=== PATIENT | female | born 1950 | race Caucasian/White ===

== ENCOUNTER 2020-04-19 16:26 | Inpatient (IN) | payer OTHER ==
[~2020-04-19] VITALS: Ht 162.6 cm; Wt 59.0 kg
[2020-04-19 21:40] VITALS: BP 114/43
[2020-04-19 21:45] VITALS: BP 114/43
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
[2020-04-20] MEDS ORDERED: MINIVELLE1 EAC1 PO (07:21)
[2020-04-20] MEDS ORDERED: VRAYLAR3 MG PO (07:22)
[2020-04-20] MEDS ORDERED: LOPRESSOR50 MG PO (07:23)
[2020-04-20] MEDS ORDERED: ALPRAZOLAM XR3 MG PO (07:26)
[2020-04-20] MEDS ORDERED: SENTRY SENIOR1 EAC2 PO (07:27)
[2020-04-20] MEDS ORDERED: ASPIRIN EC81 M1 PO (07:28)
[2020-04-20] MEDS ORDERED: NEURONTIN800 MG PO (07:30)
[2020-04-20 09:05] VITALS: BP 102/54
--- NOTE | 2020-04-20 11:12 | NUR ---
REPORTS FEELING ANXIOUS THIS AM "I DON'T THINK THIS IS THE PLACE FOR ME" GAIT STEADY WITHOUT ASSISTVE DEVICES. ORIENTED X4. DENIES SI/SH/HI. AM METROPOLOL HELD FOR BP 102/64-PT STATES USES FOR ANXIETY HAS NEVER BEEN DX WITH HTN AND STATES HASW BEEN SYMPTOMMATIC WITH HYPOTENSION REPORTING DIZZINESS. GAIT STEADY WITHOUT ASSISTIVE DEVICES. SOCIAL WITH FEMALE PEER ON [facility]
[2020-04-20 21:30] VITALS: BP 102/54
--- NOTE | 2020-04-21 03:03 | NUR ---
Assumed pt care at 1930. Pt is sleeping but is arosuable when called upon. No sign of distress noted in pt. Denies any pain. Pt is laying in bed resting comfortable. Assessment completed and documented. Scheduled meds administered to pt. Tolerated PO intake. No acute events overnight. Continue to monitor. No further needs at this time.
[2020-04-21 07:24] VITALS: BP 119/51
--- NOTE | 2020-04-21 11:00 | NUR ---
Assumed care 0700. Pleasant, quiet, cooperative, compliant with medications. BP med held due to low MV=857/51. Denies SI/HI/AH/VH.
--- NOTE | 2020-04-21 14:52 | NUR ---
Sw met with pt and complted the intake and TP. Sw also discussed thed/c plan which will be 04/22 at 11 am. Pt has supporive josselyn and a sister Narcisa, who spoke with this worker. Pt sees Elli Sharma on 04/30/20 for therapy at [facility] and Dr goff, December the MEDICAL ART THERAPIST on 04/29 at 1;30pm. Pt denies any SI. Sw will fax d/c orders and summary to [facility] [phone]
[2020-04-21 20:05] VITALS: BP 124/62
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
--- NOTE | 2020-04-21 23:38 | NUR ---
Assumed care on 04/21/20 @ 19:30, Seated on a chair in the day room watching TV and socializing with female peer. Cooperated with assessment, HRRR, Lungs CTA, ABD BS normoactive, reports BM yesterday. Denies SI/HI/AH/VH, reports President is Gabriel Sharma, we discussed President Zachary's policy of landing a man on the scherer. Patient then gave the current president as Mathieu Cronin. Able to give the name of the [facility] and own name and todays date. Reports current pain in back secondary to spinal stenosis is 4 or 5/10 and reports that level of pain is acceptable to her. Expressed concern regarding peers entering her room. Patient given permission to close bedroom door, and she expressed that she still worried about peers. Reassured of personal safety while in the hospital, and returned to bed. Bed in low position, eyes closed, respirations even and unlabored. Will continue to monitor as per department protocol.
[2020-04-22 02:10] VITALS: BP 124/62
[2020-04-22 08:43] VITALS: BP 124/62
[2020-04-22 09:17] VITALS: BP 103/63
[2020-04-22] MEDS ORDERED: NEURONTIN 400400 M1 PO (09:47)
[2020-04-22] MEDS ORDERED: TRAZODONE HCL100 MG PO (09:48)
[2020-04-22] MEDS ORDERED: LAMOTRIGINE150 MG PO (09:48)
[2020-04-22] MEDS ORDERED: HOME MEDICATION PO (09:50)
--- NOTE | 2020-04-22 15:05 | NUR ---
0700 ASSUMED CARE OF PATIENT. PATIENT TO DAYROOM AMB WITH A STEADY GAIT. PATIENT SITS WITH OTHER COMUNICATING WELL. PATIENT ATE 100% OF MEAL. NO C/O PAIN AT THAT TIME. MEDICATIONS TAKEN WHOLE WITHOUT DIFFICULTY. LS CLEAR, BS ACTIVE. PATIENT PRESENT IN AM GROUP. PATIENT AMB IN [place] WAITING TO BE DISCHARGED THIS AM. PATIENT TO ROOM AND DC INSTRUCTIONS GIVEN AT 1030. PATIENT DRESSED AND READY TO GO HOME. PATIENT DC'D AT 1130AM WITH FAMILY MEMBER. AMB TO VEHICLE ACCOMPANIED BY LABEL TACKER WITH BELONGING IN HAND INCLUDING HOME MEDICATION.
== END 2020-04-22 11:30 | disposition home or self-care (01) | DRG 885 ==
LOC: SBH
PROVIDERS: ADMIT Psychiatry & Neurology Psychiatry; ATTEND Psychiatry & Neurology Psychiatry
DX: F31.81 Bipolar II disorder (principal); R45.851 Suicidal ideations; L57.0 Actinic keratosis; M54.12 Radiculopathy, cervical region; F41.9 Anxiety disorder, unspecified; F20.9 Schizophrenia, unspecified; R47.02 Dysphasia; M48.00 Spinal stenosis, site unspecified; F17.210 Nicotine dependence, cigarettes, uncomplicated; R25.1 Tremor, unspecified; M75.00 Adhesive capsulitis of unspecified shoulder; Z79.82 Long term (current) use of aspirin; Z79.899 Other long term (current) drug therapy
CPT/HCPCS: 10880